=== PATIENT | male | born 1995 | race Caucasian/White ===

== ENCOUNTER 2022-12-05 09:56 | Emergency (ER) | payer BC ==
[~2022-12-05] VITALS: Ht 177.8 cm; Wt 86.3 kg
[2022-12-05 10:06] VITALS: BP 138/80
[2022-12-05] MEDS ORDERED: NYST15CR37 TP ×2 (10:23)
[2022-12-05] MEDS ORDERED: FLUC100T42 MT (10:25)
[2022-12-05] MEDS ORDERED: IBUP-2028 MT (10:26)
[2022-12-05] MEDS ORDERED: ACET-2708 MT (10:26)
== END 2022-12-05 10:56 | disposition home or self-care (01) ==
LOC: ER 09:56
DX: J02.9 Acute pharyngitis, unspecified (principal)
CPT/HCPCS: 99283